=== PATIENT | female | born 1965 | race Hispanic/Latino ===

== ENCOUNTER 2017-12-13 16:54 | Emergency (ER) | payer OTHER ==
[2017-12-13] MEDS ORDERED: TRAMADOL HCL 50 MG TABLET ONE (19:48)
[2017-12-21] MEDS ORDERED: SIMV10TA6 PO (16:31)
[2017-12-21] MEDS ORDERED: LEVO137T2 PO (16:31)
[2017-12-21] MEDS ORDERED: CHOL500050 PO (16:31)
== END 2017-12-13 19:56 | disposition home or self-care (01) ==
LOC: EDH 16:54
DX: S89.82XA Other specified injuries of left lower leg, initial encounter (principal); E78.5 Hyperlipidemia, unspecified; E07.9 Disorder of thyroid, unspecified; X58.XXXA Exposure to other specified factors, initial encounter; Y93.89 Activity, other specified; Y92.098 Other place in other non-institutional residence as the place of occurrence of the external cause; Y99.8 Other external cause status
CPT/HCPCS: 93971

== ENCOUNTER 2017-12-24 06:24 | Day surgery (SDC) | payer OTHER ==
[2017-12-21 16:39] VITALS: BP 135/73
[2017-12-21 17:25] LABS: CREATININE 0.7 mg/dL (0.5-1.5); POTASSIUM 4.1 mmol/L (3.5-5.1)
[2017-12-24] VITALS (13 sets, daily range): BP systolic 114–147; BP diastolic 67–94
[~2017-12-24] VITALS: Ht 152.4 cm; Wt 88.5 kg
[~2017-12-24 06:24] MED LIST: CHOL500050 PO; LEVO137T2 PO; SIMV10TA6 PO
[2017-12-24] MEDS ORDERED: LACTATED RINGERS 1000ML 1,000 ML IV ONE (06:58)
[2017-12-24] MEDS: CEFAZOLIN SODIUM 1 GM VIAL ONE ×2 (07:32→09:05)
[2017-12-24] MEDS ORDERED: MIDAZOLAM HCL 1 MG/ML 2ML VIAL ONE (08:21)
[2017-12-24] MEDS ORDERED: PROPOFOL 10 MG/ML 20ML VIAL IV ONE (08:21)
[2017-12-24] MEDS ORDERED: FENTANYL CITRATE PF 50 MCG/1 ML 2ML VIAL ONE ×4 (08:22→10:26)
[2017-12-24] MEDS ORDERED: SODIUM CHLORIDE 0.9% 10 ML VIAL ONE (09:40)
[2017-12-24] MEDS ORDERED: PHENYLEPHRINE HCL 10 MG/ML 1ML VIAL IV ONE (09:40)
[2017-12-24] MEDS ORDERED: LIDOCAINE PF 2% 5ML ABBOJECT ONE (09:40)
[2017-12-24] MEDS ORDERED: DEXAMETHASONE SOD PHOSPHATE 10MG/ML 1ML VIAL ONE (09:41)
[2017-12-24] MEDS ORDERED: KETOROLAC TROMETHAMINE 30MG/ML ONE (10:35)
[2017-12-24] MEDS ORDERED: MEPERIDINE-PF 50 MG/ML SYG ONE (10:48)
[2017-12-24 14:05] LABS: SPECIMENTYPE,BODY FLUID SYNOVIAL
[2017-12-24 14:06] LABS: APPEARANCE BODY FLUID SLIGHTLY CLOUDY (CLEAR); COLOR,BODY FLUID YELLOW (LT YELLOW); TOTAL VOLUME,BODY FLUID 35 mL
[2017-12-24 14:07] LABS: BODY FLUID RBC 100 /cu. mm.; BODY FLUID WBC 2445 /cu. mm.
[2017-12-24 14:13] LABS: BF LYMPHOCYTE 48 %; BF MONOCYTE 5 %; BF OTHER CELLS 20
[2017-12-25] MEDS ORDERED: CEFAZOLIN SODIUM 1 GM VIAL IVP SCH (06:00)
== END 2017-12-24 12:21 | disposition home or self-care (01) ==
LOC: DAH 06:24
PROVIDERS: ATTEND Orthopaedic Surgery
DX: M23.222 Derangement of posterior horn of medial meniscus due to old tear or injury, left knee (principal); M22.42 Chondromalacia patellae, left knee; M67.52 Plica syndrome, left knee; Z87.891 Personal history of nicotine dependence; F03.90 Unspecified dementia, unspecified severity, without behavioral disturbance, psychotic disturbance, mood disturbance, and anxiety
CPT/HCPCS: 29873; 29881; 36415; 80048; 87070; 87076; 87205; 89051; A4218; A4606; A4649 ×2; A4930; A6223; J0690; J1100; J1885; J2001; J2175; J2250; J2370; J2704; J3010 ×4; J7030; J7120

== ENCOUNTER → 2022-02-16 | Outpatient (CLI) | payer OTHER, SELFPAY ==
[~2022-02-16] MED LIST changes: -SIMV10TA6 PO; +SIMV10TA97 PO
== END | disposition home or self-care (01) ==
LOC: RAH 11:32
PROVIDERS: ATTEND Family Medicine
DX: E11.69 Type 2 diabetes mellitus with other specified complication (principal)
CPT/HCPCS: 93922